=== PATIENT | male | born 1960 | race Caucasian/White ===

== ENCOUNTER 2020-10-29 17:33 | Inpatient (IN) | payer BC ==
[~2020-10-29] VITALS: Ht 180.3 cm; Wt 82.9 kg
--- NOTE | 2020-10-29 17:35 | NUR ---
MARCELA WANG, TRANSFER FROM [facility] [place] FOR ACUTE CVA. PER EMS, PT HAS COMPLETE OCCLUSION OF R CAROTID ARTERY. L ARM WEAKNESS STARTED LAST NIGHT; WENT TO ER EARLIER [place], OUT OF WINDOW FOR TPA. PT UNABLE TO RAISE L ARM COMPLETELY OFF BED. NO NUMBNESS/TINGLING, NO FACIAL ASYMMETRY. PT DENIES MEDICAL HX OR MEDS. ARRIVES TO ED A&OX4, AMBULATORY BUT UNSTEADY GAIT. VSS.
--- NOTE | 2020-10-29 18:30 | NUR ---
WATER & MEAL TRAY PROVIDED TO PT. NO SWALLOWING DIFFICULTIES. PT ATE SOME FRUIT. RV'WD POC WITH PT. PILLOW PROVIDED. PT TALKING ON THE PHONE WITH FAMILY/FRIENDS. NO OTHER NEEDS AT THIS TIME.
[2020-10-29] MEDS ORDERED: DOCUSATE 100 MG CAPSULE PO PRN (19:30)
[2020-10-29] MEDS ORDERED: ONDANSETRON 4 MG TABLET PO PRN (19:30)
[2020-10-29] MEDS ORDERED: ONDANSETRON 2MG/ML, 2ML IVPush PRN (19:30)
[2020-10-29] MEDS ORDERED: BISACODYL 10 MG SUPP PR PRN (19:30)
[2020-10-29] MEDS ORDERED: POLYETHYLENE GLYCOL 17 GM PACKET PO PRN (19:30)
[2020-10-29] MEDS ORDERED: MELATONIN 5 MG TABLET PO PRN (19:30)
[2020-10-29] MEDS ORDERED: LABETALOL 5MG/ML, 20ML IV PRN (19:30)
[2020-10-29] MEDS ORDERED: ENALAPRILAT 1.25 MG/ML, 2ML IV PRN (19:30)
[2020-10-29] MEDS ORDERED: ACETAMINOPHEN 325 MG TABLET ONE (20:58)
[2020-10-29] MEDS ORDERED: ENOXAPARIN 40 MG/0.4 ML ONE (20:58)
[2020-10-29] MEDS ORDERED: ATORVASTATIN 40 MG TABLET PO SCH (21:00)
[2020-10-29] MEDS: ENOXAPARIN 40 MG/0.4 ML SQ SCH (21:07)
--- NOTE | 2020-10-29 21:11 | NUR ---
PT C/O MILD HEADACHE. MEDICATED WITH TYLENOL PER PRN ORDERS (DR. DEVIN BOSCH WITH PT TAKING TABLETS INSTEAD OF LIQUID TYLENOL). PT TOOK PILLS WITHOUT DIFFICULTY.
[2020-10-29] MEDS ORDERED: ACETAMINOPHEN 325 MG TABLET PO ONE (21:30)
[2020-10-29 22:44] VITALS: BP 139/86
[2020-10-30 01:51] VITALS: BP 149/94
[2020-10-30 06:05] LABS: BASOPHILS % (AUTO) 1 % (0-1); EOSINOPHILS % (AUTO) 2 % (1-7); LYMPHOCYTES % (AUTO) 29 % (22-44); MEAN CORPUSCULAR HEMOGLOBIN 31.8 pg (27.5-34.5); MEAN CORPUSCULAR HGB CONC 34.6 g/dL (33.2-36.2); MEAN PLATELET VOLUME 8.6 fL (7.4-10.4); MONOCYTES % (AUTO) 12 % (2-9); NEUTROPHILS % (AUTO) 57 % (42-75); PLATELET COUNT 186 x10^3/uL (130-400); RED BLOOD COUNT 5.69 x10^6/uL (4.38-5.82); RED CELL DISTRIBUTION WIDTH 12.8 % (9.4-14.8)
[2020-10-30 06:12] LABS: ANION GAP 9 mmol/L (5-15); CALCIUM 9.4 mg/dL (8.5-10.1); CHLORIDE 107 mmol/L (98-107)
[2020-10-30 06:15] LABS: ALANINE AMINOTRANSFERASE 59 U/L (12-78); ALKALINE PHOSPHATASE 114 U/L (45-117); BILIRUBIN,TOTAL 2.2 mg/dL (0.2-1.0); CHOL/HDL RATIO 7.8; CHOLESTEROL, TOTAL 311 mg/dL (140-239); CREATININE 0.99 mg/dL (0.7-1.3); HDL CHOL % 13 % (26-37); HDL CHOLESTEROL (DIRECT) 40 mg/dL (40-60); LDL CHOLESTEROL,CALCULATED 200 mg/dL (54-169); TOTAL PROTEIN 7.3 g/dL (6.4-8.2); TRIGLYCERIDES 355 mg/dL (50-200); VLDL CHOLESTEROL 71 mg/dL (0-25)
[2020-10-30 08:15] VITALS: BP 148/99
[2020-10-30] MEDS: CLOPIDOGREL 75 MG TABLET PO SCH (08:23)
[2020-10-30] MEDS: ASPIRIN 81 MG TABLET CHEW PO/NG SCH (08:23)
[2020-10-30] MEDS: ACETAMINOPHEN 650 MG/20.3 ML UDC PO PRN ×2 (12:24→19:36)
[2020-10-30 12:50] VITALS: BP 155/97
[2020-10-30] MEDS ORDERED: GADOTERATE 10 MMOL/20 ML VIAL ONE (14:54)
[2020-10-30 18:48] VITALS: BP 162/89
[2020-10-30] MEDS: ATORVASTATIN 40 MG TABLET PO SCH (19:35)
[2020-10-30] MEDS: ENOXAPARIN 40 MG/0.4 ML SQ SCH (19:35)
[2020-10-30 22:38] VITALS: BP 162/110
[2020-10-31 00:47] VITALS: BP 136/101
[2020-10-31 06:21] LABS: BASOPHILS % (AUTO) 1 % (0-1); EOSINOPHILS % (AUTO) 1 % (1-7); LYMPHOCYTES % (AUTO) 28 % (22-44); MEAN CORPUSCULAR HEMOGLOBIN 32.2 pg (27.5-34.5); MEAN PLATELET VOLUME 8.8 fL (7.4-10.4); MONOCYTES % (AUTO) 12 % (2-9); NEUTROPHILS % (AUTO) 58 % (42-75); PLATELET COUNT 198 x10^3/uL (130-400); RED BLOOD COUNT 5.73 x10^6/uL (4.38-5.82); RED CELL DISTRIBUTION WIDTH 12.7 % (9.4-14.8)
[2020-10-31 06:34] LABS: ALBUMIN 3.9 g/dL (3.4-5.0); ANION GAP 11 mmol/L (5-15); CALCIUM 9.8 mg/dL (8.5-10.1); CHLORIDE 104 mmol/L (98-107)
[2020-10-31 08:02] VITALS: BP 155/96
[2020-10-31] MEDS: ASPIRIN 81 MG TABLET CHEW PO/NG SCH (08:18)
[2020-10-31] MEDS: CLOPIDOGREL 75 MG TABLET PO SCH (08:18)
[2020-10-31 12:10] VITALS: BP 155/96
[2020-10-31] MEDS ORDERED: ATOR40TA78 PO ×2 (12:59)
[2020-10-31] MEDS ORDERED: CLOP75TA PO (12:59)
[2020-10-31] MEDS ORDERED: ASPI-963 PO/NG ×2 (12:59)
[2020-10-31] MEDS ORDERED: FENO48TA10 PO (12:59)
[2020-10-31] MEDS ORDERED: LISI5TAB7 PO (13:11)
[2020-10-31 19:56] VITALS: BP 146/96
[2020-10-31] MEDS: ATORVASTATIN 40 MG TABLET PO SCH (20:04)
[2020-10-31] MEDS: ENOXAPARIN 40 MG/0.4 ML SQ SCH (20:04)
[2020-11-01 01:49] VITALS: BP 126/89
[2020-11-01] MEDS: CLOPIDOGREL 75 MG TABLET PO SCH (09:06)
[2020-11-01] MEDS: ASPIRIN 81 MG TABLET CHEW PO/NG SCH (09:06)
[2020-11-01 09:11] VITALS: BP 143/95
[2020-11-01] MEDS ORDERED: ATOR-2 PO (13:47)
[2020-11-01] MEDS ORDERED: ASPI-963 PO (13:47)
== END 2020-11-01 13:26 | disposition home or self-care (01) | DRG 66 ==
LOC: ED 19:00 → EDIP 21:49 → 4EST 21:50
PROVIDERS: ADMIT Internal Medicine; ATTEND Family Medicine
DX: I63.511 Cerebral infarction due to unspecified occlusion or stenosis of right middle cerebral artery (principal); I10 Essential (primary) hypertension; I65.21 Occlusion and stenosis of right carotid artery; E80.6 Other disorders of bilirubin metabolism; R29.704 NIHSS score 4; Z82.49 Family history of ischemic heart disease and other diseases of the circulatory system
CPT/HCPCS: 36415; 96374; 99285; A9575; 70544; 70549; 70553; 80053; 80061; 80069; 83036; 83735; 85025; 93005; 93306; 93356; G0378; J1650; 92523-GN